=== PATIENT | male | born 1965 | race Caucasian/White ===

== ENCOUNTER 2020-02-18 13:53 | Emergency (ER) | payer OTHER ==
[~2020-02-18] VITALS: Ht 170.2 cm; Wt 93.0 kg
--- OUTSIDE RECORDS SUMMARY | ~2020-02-18 | XMS | Clinical Summary ---
Demographics + + + | Address | [address] | | | [place] [address] | + + + | Home Phone | | + + + | Preferred Language | Unknown | + + + | Marital Status | Single | + + + | Temple Affiliation | NON | + + + | Race | White | + + + | Ethnic Group | Not or | + + + Author + + + | Author | [facility] | + + + | Organization | [facility] | + + + | Address | Unknown | + + + | Phone | Unavailable | + + + Support + + +---------+ + | Name | Relationship | Address | Phone | + + +---------+ + | Emma | ECON | GERARDOK ADD | | | | | Unknown | | + + +---------+ + | Amaury Osuna | ECON | UNK ADD | | | | | Unknown | | + + +---------+ + | Mala | ECON | UNFaheem ADD | | | | | Unknown | | + + +---------+ + Care Team Providers + +------+ + | Care Backend Python Developer Name | Role | Phone | + +------+ + | No Pcp Per Patient | PCP | Unavailable | + +------+ + Source Comments DEREK is fully live on both [facility] and [facility] InPatient.[facility] Allergies Not on File Medications No known medications Active Problems Not on file Social History + +-------+ +--------+------+ | Tobacco [...] on file | | + + + + + + + | Job Start Date | Occupation | Industry | + + + + | Not on file | Not on file | Not on file | + + + + + + + + | Travel History | Travel Start | Travel End | + + + + + + | No recent travel history available. | + + Last Filed Vital Signs + + + [...] | | + + + + + Plan of Treatment + + + + + | Health Maintenance | Due Date | Last Done | Comments | + + + + + | Influenza (Flu) | | | | | vaccination (#1) | 9 | | | + + + + + | Pneumococcal | Aged Out | | No longer eligible | | vaccination | | | based on patient's | | | | | age to complete this | | | | | topic | + + + + + Results Not on filefrom Last 3 Months Insurance +-------+--------+ +--------+ + +------+ | Payer | Benefi | Subscriber | Effect | Phone | Address | Type | | | t Plan | ID | john | | | | | | / | | Dates | | | | | | Group | | | | | | +-------+--------+ +--------+ + +------+ | [place] | [place] | xxxxxxxxxxx | Effect | [phone] | [address] | | | | xxxxx | john | 0 | [phone] | | | | | | for | | [place] | | | | | | all | | [phone] | | | | | | dates | | | | +-------+--------+ +--------+ + +------+ + +--------+ +--------+ + + | Guarantor Name | Accoun | Relation to | Date | Phone | Billing Address | | | t Type | Patient | of | | | | | | | | | | + +--------+ +--------+ + + | Rodney Huerta | Person | Self | [birth year] | [address] | | | al/Fam | | 1965 | [phone] | [address] [place], | | | nadir | | | [address] (Home) | [place] [address] | + +--------+ +--------+ + + | Rodney Huerta | Third | Self | [birth year] | | [address] [facility] | | | Republican | | 1965 | [phone] | [address] [place], | | | [place] | | | [address] (Home) | [place] [address] | | | ity | | | | | + +--------+ +--------+ + +"
--- OUTSIDE RECORDS SUMMARY | ~2020-02-18 | XMS | Clinical Summary ---
Demographics + + + | Address | [address] | | | [place] [address] | + + + | Home Phone | | + + + | Preferred Language | Unknown | + + + | Marital Status | Single | + + + | Church Affiliation | NON | + + + [...] Team Providers + +------+ + | Care Media Services Director Name | Role | Phone | + +------+ + | No Pcp Per Patient | PCP | Unavailable | + +------+ + Source Comments [facility]ERE[facility] Allergies Not on File Medications No known [...] | xxxxx | john | 0 | [phone] | | | | | | for | | [place] | | | | | | all | | [phone] | | | | | | dates [...] Person | Self | [birth year] | | [address] | | | al/Fam | | 1965 | [phone] | [address] [place], | | | nad[place] | | | [address] (Home) | [place] [address] | + +--------+ +--------+ + + | Rodney Huerta | Third | Self | [birth year] | | [address] [facility] | | | Libertarian | | 1965 | [phone] | [address] [place], | | | [place] | | | [address] (Home) | [place] [address] | | | ity | | | | | + +--------+ +--------+ + +"
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
--- OUTSIDE RECORDS SUMMARY | ~2020-02-18 | XMS | Encounter Summary ---
Demographics + + + | Address | [address] | | | [place] [address] | + + + | Home Phone [...] Author + + + | Author | [facility] | + + + | Organization | [facility] | + + + | [...] Team Providers + +------+ + | Care Caustic Room Operator Name | Role | Phone | + +------+ + PCP | Unavailable | + +------+ + Encounter Details +--------+ + + + + | Date | Type | Department | Care Team | Description | +--------+ + + + + | 08/06/ | Results | NON-[facility] | Cassia Hernandez, | | | 2008 | Only | Department | [place] [address] | | | | | | [place] | | | | | | [address] | | | | | | [phone] | | | | | | | [...] + + + + + | [facility] | [place] | [place] | | | [facility] | [facility] | [address] | | + + + + + documented in this encounter Visit Diagnoses Not on filedocumented in this encounter"
--- OUTSIDE RECORDS SUMMARY | ~2020-02-18 | XMS | Encounter Summary ---
Demographics + + + | Address | [address] | | | [place] [address] | + + + | Home Phone | | + + + | Preferred Language | Unknown | + + + | Marital Status | Single | + + + | Gnosticism Affiliation | NON | + + + | Race | White | + + + | Ethnic Group | Not or | + + + Author + + + | Author | [facility] | + + + | Organization | [facility] | + + + | [...] Team Providers + +------+ + | Care Diesel Pile Hammer Operator Name | Role | Phone | + +------+ + PCP | Unavailable | + +------+ + Encounter Details +--------+ + + + + | Date | Type | Department | Care Team | Description | +--------+ + + + + | 08/06/ | Results | NON[facility] | Cassia Hernandez, | | | 2008 | Only | Department | [place] [address] | | | | | | [place] | | | | | | [address] | | | | | | [phone] | | | | | | | [...] + + + + | [facility] | [place] | [place] | | | [facility] | [facility] | [address] | | + + + + + documented in this encounter Visit Diagnoses Not on filedocumented in this encounter"
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
[2020-02-18] MEDS ORDERED: HYDROXYZINE HCL25 MG PO (14:05)
[2020-02-18] MEDS ORDERED: VISTARIL25 MG PO (14:20)
== END 2020-02-18 14:34 | disposition home or self-care (01) ==
LOC: ED 13:53
DX: T78.3XXA Angioneurotic edema, initial encounter (principal); F17.200 Nicotine dependence, unspecified, uncomplicated; Z88.2 Allergy status to sulfonamides; Z88.8 Allergy status to other drugs, medicaments and biological substances; Z79.899 Other long term (current) drug therapy
CPT/HCPCS: 99283; Q0177

== ENCOUNTER 2020-05-23 16:57 | Emergency (ER) | payer OTHER ==
[~2020-05-23] VITALS: Ht 170.2 cm; Wt 90.7 kg
[~2020-05-23 16:57] MED LIST: HYDROXYZINE HCL25 MG PO; VISTARIL25 MG PO
[2020-05-23] MEDS ORDERED: CLEOCIN HCL300 MG PO (18:31)
== END 2020-05-23 18:43 | disposition home or self-care (01) ==
LOC: ED 16:57
DX: L03.114 Cellulitis of left upper limb (principal); F17.200 Nicotine dependence, unspecified, uncomplicated; Z88.2 Allergy status to sulfonamides; Z88.8 Allergy status to other drugs, medicaments and biological substances; Z79.899 Other long term (current) drug therapy
CPT/HCPCS: 99283

== ENCOUNTER 2020-06-22 20:18 | Emergency (ER) | payer OTHER ==
[~2020-06-22] VITALS: Ht 170.2 cm; Wt 90.7 kg
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
--- OUTSIDE RECORDS SUMMARY | ~2020-06-22 | XMS | Encounter Summary ---
Demographics + + + | Address | [address] | | | [place] [address] | + + + | Home Phone | | + + + | Preferred Language | Unknown | + + + | Marital Status | Single | + + + | Taoist Affiliation | NON | + + + | Race | White | + + + | Ethnic Group | Not or | + + + Author + + + | Author | [facility] | + + + | Organization | [facility] | + + + | Address | Unknown | + + + | Phone | Unavailable | + + + Support + + +---------+ + | Name | Relationship | Address | Phone | + + +---------+ + | Emma | KELLE | [address] [address] | | | | | Unknown | | + + +---------+ + | Amaury Osuna | ECON | UNK ADD | | | | | Unknown | | + + +---------+ + | Mala | ECON | UNFaheem ADD | | | | | Unknown | | + + +---------+ + Care Team Providers + +------+ + | Care Credit Portfolio Manager Name | Role | Phone | + +------+ + PCP | Unavailable | + +------+ + Encounter Details +--------+ + + + + | Date | Type | Department | Care Team | Description | +--------+ + + + + | 08/06/ | Results | NON[facility] | Cassia Hernandez, | | | 2008 | Only | Department | [place] [address] | | | | | | [place] | | | | | | [address] | | | | | | [phone] | | | | | | | | +--------+ + + + [...] + + documented as of this encounter Plan of Treatment Not on filedocumented as of this encounter Procedures + +--------+ + + + | Procedure Name | Priori | Date/Time | Associated Diagnosis | Comments | | | ty | | | | + +--------+ + + + | ELLEN VALIENTE ONLY | Routin | 08/06/2009 | | Results for this | | | e | 9:05 AM | | procedure are in the | | | | PST | | results section. | + +--------+ + + + documented in this encounter Results ELLEN VALIENTE ONLY (08/06/2009 9:05 AM PST) + + + + + + | Component | Value | Ref Range | Performed | Pathologist | | | | | At | Signature | + + + + + + | COLOR(UR) | YELLOW | YELLOW | [facility] | | | | | | A MEDICAL | | | | | | CENTER | | + + + + + + | APPEARANCE | CLEAR | CLEAR | [facility] | | | | | | A MEDICAL | | | | | | CENTER | | + + + + + + | SPECIFIC | 1.010 | 1.005 - 1.030 | [facility] | | | GRAVITY | | | A MEDICAL | | | | | | CENTER | | + + + + + + | PH(UR) | 6.0 | 5.0 - 8.0 | [facility] | | | | | | A MEDICAL | | | | | | CENTER | | + + + + + + | PROTEIN, UA | NEG | NEGATIVE | [facility] | | | | | | A MEDICAL | | | | | | CENTER | | + + + + + + | GLUCOSE, UA | NEG | N | [facility] | | | | | | A MEDICAL | | | | | | CENTER | | + + + + + + | KETONES, UA | NEG | NEGATIVE | [facility] | | | | | | A MEDICAL | | | | | | CENTER | | + + + + + + | BILIRUBIN | NEG | NEGATIVE | [facility] | | | | | | A MEDICAL | | | | | | CENTER | | + + + + + + | BLOOD | NEG | NEGATIVE | [facility] | | | | | | A MEDICAL | | | | | | CENTER | | + + + + + + | NITRITES | NEG | NEGATIVE | [facility] | | | | | | A MEDICAL | | | | | | CENTER | | + + + + + + | LEUKOCYTE | NEG | NEGATIVE | [facility] | | | ESTERASE | | | A MEDICAL | | | | | | CENTER | | + + + + + + | UROBILINOGE | NORMAL | NORMAL FIDENCIO | [facility] | | | N | | | A MEDICAL | | | | | | CENTER | | + + + + + + | SOURCE | CLEAN CATCH | | [facility] | | | | [...] + + + + + | [facility] | | | | | LABORATORY | | | | + + + + + | [facility] | And | [place] | | | [facility] | [place] | [address] | | + + + + + documented in this encounter Visit Diagnoses Not on filedocumented in this encounter"
--- OUTSIDE RECORDS SUMMARY | ~2020-06-22 | XMS | Clinical Summary ---
Demographics + + + | Address | [address] | | | [place] [address] | + + + | Home Phone | | + + + | Preferred Language | Unknown | + + + | Marital Status | Single | + + + | Druze Affiliation | NON | + + + [...] Team Providers + +------+ + | Care Billing Department Supervisor Name | Role | Phone | + +------+ + | No Pcp Per Patient | PCP | Unavailable | + +------+ + Source Comments DEREK is fully live on both [facility] and [facility] Allergies Not on File Medications [...] on file | | + + + Last Filed Vital Signs + [...] + + Plan of Treatment + + +-------+ + | Health Maintenance | Due Date | Last | Comments | | | | Done | | + + +-------+ + | Influenza (Flu) | | | | | vaccination (#1) | 0 | | | + + +-------+ + | Pneumococcal | Aged Out | | No longer eligible based on patient's age | | vaccination | | | to complete this topic | + + +-------+ + Results Not on filefrom Last 3 [...] Box | Auto | | | | [phone] | john | 0 | [id number] | | | | | | for | | [place] | | | | | | all | | [phone] | | | | | | dates [...] Person | Self | [birth year] | [address] | | | al/Fam | | 1965 | [phone] | #[place], | | | nad[place] | | | [address] (Home) | [place] [address] | + +--------+ +--------+ + + | Rodney Huerta | Third | Self | [birth year] | | [address] [facility] | | | [employer] | | 1965 | [phone] | #[place], | | | [place] | | | [address] (Home) | [place] [address] | | | ity | | | | | + +--------+ +--------+ + +"
[~2020-06-22 20:18] MED LIST changes: +CLEOCIN HCL300 MG PO
--- OUTSIDE RECORDS SUMMARY | 2020-06-22 20:20 | XMS ---
PreManage Notification: ZAINAB BARRON [employer] Rigger Events No recent Security Events currently on file CRITERIA MET - [facility] - 2 Visits in 30 Days CARE PROVIDERS YU ORDONEZ Spreader Box Operator/Emergency Service Worker [facility] PHONE: [phone] REENA [facility]: Federally Qualified 07/09/2019-Current CONCERN - [facility] ([facility]) PHONE: [phone] CLAYTON PARIS Spreader Box Operator/Emergency Service Worker [facility] PHONE: [phone] PRISCILLA COWART Current PHONE: Unknown YU BARRETT Spreader Box Operator/Emergency Service Worker [facility] TEAM PHONE: Unknown [facility] has no Care Guidelines for this patient. Ana VISIT COUNT (12 MO.) 2 Rikki Pavon TOTAL 5 NOTE: Visits indicate total known visits. ED/UCC VISIT TRACKING (12 MO.) 06/22/2020 20:19 [place] TYPE: Emergency COMPLAINT: - SKIN PROBLEM 05/23/2020 16:58 [place]IZA [place] TYPE: Emergency COMPLAINT: - SKIN PROBLEM DIAGNOSES: - Nicotine dependence, unspecified, uncomplicated - Other halfway (current) drug therapy - Allergy status to other drugs, medicaments and biological sub - Allergy status to sulfonamides status - Cellulitis of left upper limb 02/18/2020 13:54 MARIZA [place] TYPE: Emergency COMPLAINT: - FACIAL SWELLING/ NON INJURY DIAGNOSES: - Localized swelling, mass and lump, head - Allergy status to sulfonamides status - Allergy status to other drugs, medicaments and biological sub - Angioneurotic edema, initial encounter - Nicotine dependence, unspecified, uncomplicated - Other halfway (current) drug therapy 08/20/2019 00:09 [place] TYPE: Emergency DIAGNOSES: - follow up visit - Encounter for other specified aftercare 08/17/2019 18:23 R[place]ki [place] TYPE: Emergency DIAGNOSES: - Cutaneous abscess, unspecified - ABSCESS INPATIENT VISIT TRACKING (12 MO.) No inpatient visits to display in this time frame [email or web address]
[2020-06-22] MEDS ORDERED: CLINDAMYCIN HC300 MG PO (20:37)
== END 2020-06-22 20:51 | disposition home or self-care (01) ==
LOC: ED 20:18
DX: L03.317 Cellulitis of buttock (principal); L02.31 Cutaneous abscess of buttock; F11.10 Opioid abuse, uncomplicated; F17.200 Nicotine dependence, unspecified, uncomplicated; Z88.8 Allergy status to other drugs, medicaments and biological substances; Z88.2 Allergy status to sulfonamides
CPT/HCPCS: 99283

== ENCOUNTER 2020-08-01 19:36 | Emergency (ER) | payer OTHER ==
[~2020-08-01] VITALS: Ht 170.2 cm; Wt 90.7 kg
[~2020-08-01 19:36] MED LIST changes: +CLINDAMYCIN HC300 MG PO
[2020-08-01] MEDS ORDERED: HYDROXYZINE HCL50 MG PO (19:56)
[2020-08-01] MEDS ORDERED: CLINDAMYCIN HC300 MG PO (21:01)
== END 2020-08-01 21:14 | disposition home or self-care (01) ==
LOC: ED 19:36
DX: L03.114 Cellulitis of left upper limb (principal); F11.10 Opioid abuse, uncomplicated; F17.200 Nicotine dependence, unspecified, uncomplicated; Z88.8 Allergy status to other drugs, medicaments and biological substances; Z88.2 Allergy status to sulfonamides; Z79.899 Other long term (current) drug therapy
CPT/HCPCS: 99283

== ENCOUNTER 2022-02-25 15:38 | Emergency (ER) | payer OTHER ==
[~2022-02-25] VITALS: Ht 170.2 cm; Wt 88.0 kg
[~2022-02-25 15:38] MED LIST changes: +HYDROXYZINE HCL50 MG PO
--- OUTSIDE RECORDS SUMMARY | 2022-02-25 15:42 | XMS ---
PreManage Notification: ZAINAB BARRON Security Supervisor Building Maintenance Events No recent Security Events currently on file CRITERIA MET - NICOL CARE PROVIDERS YU ORDONEZ Dairy Management Specialist/Tappet Adjuster [facility] PHONE: [phone] REENA [facility]/Center: Federally Qualified 07/09/2019-Current CONCERN - [facility] ([facility]) PHONE: [phone] CLAYTON CARLTON Dairy Management Specialist/Tappet Adjuster [facility] PHONE: [phone] LINDA SANCHEZ 06/23/2020-Current PHONE: [phone] BEULAH CARD [facility] Current PHONE: [phone] PRISCILLA COWART Current PHONE: Unknown YU BARRETT Dairy Management Specialist/Tappet Adjuster Current [facility] CARE TEAM PHONE: Unknown [facility] has no Care Guidelines for this patient. Care History Medical/Surgical 06/25/2020 [facility] - PATIENT HAS A FOLLOW UP APT WITH LINDA KUHN ON 06/30/2020 [place] VISIT COUNT (12 MO.) 1 MARIZA [place] TOTAL 1 NOTE: Visits indicate total known visits. ED/UCC VISIT TRACKING (12 MO.) 02/25/2022 15:40 [facility]A [place] TYPE: Emergency COMPLAINT: - FOREIGN OBJECT IN RT EYE INPATIENT VISIT TRACKING (12 MO.) No inpatient visits to display in this time frame [email or web address]
[2022-02-25] MEDS ORDERED: VITAMIN D31250 MC1 PO (16:13)
[2022-02-25] MEDS ORDERED: BUPRENORPHINE HC8 MG SL (16:13)
== END 2022-02-25 17:12 | disposition home or self-care (01) ==
LOC: ED 15:38
DX: T15.01XA Foreign body in cornea, right eye, initial encounter (principal); W22.8XXA Striking against or struck by other objects, initial encounter; F17.200 Nicotine dependence, unspecified, uncomplicated; Z88.2 Allergy status to sulfonamides; Z79.899 Other long term (current) drug therapy
CPT/HCPCS: 65222; 99283-25

== ENCOUNTER 2022-10-07 10:19 | Emergency (ER) | payer OTHER ==
[~2022-10-07] VITALS: Ht 170.2 cm; Wt 81.2 kg
[~2022-10-07 10:19] MED LIST changes: +BUPRENORPHINE HC8 MG SL; +VITAMIN D31250 MC1 PO
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
[2022-10-07] MEDS ORDERED: CLINDAMYCIN HC300 MG PO (10:52)
== END 2022-10-07 11:16 | disposition home or self-care (01) ==
LOC: ED 10:19
DX: L03.114 Cellulitis of left upper limb (principal); F17.200 Nicotine dependence, unspecified, uncomplicated; Z88.2 Allergy status to sulfonamides; Z88.8 Allergy status to other drugs, medicaments and biological substances; Z79.899 Other long term (current) drug therapy
CPT/HCPCS: 29125; 99283-25

== ENCOUNTER 2024-10-21 02:00 | Emergency (ER) | payer OTHER ==
[~2024-10-21] VITALS: Ht 170.2 cm; Wt 104.8 kg
[2024-10-21] MEDS ORDERED: LACTATED RINGER'S 1,000 ML IV ONE (02:30)
[2024-10-21] MEDS ORDERED: DEXAMETHASONE SOD PHOS 10 MG/ML VIAL IV ONE (02:45)
[2024-10-21] MEDS ORDERED: DEXAMETHASONE SOD PHOS 10 MG/ML VIAL IM ONE (03:30)
[2024-10-21] MEDS ORDERED: FAMOTIDINE 20 MG TAB PO ONE (04:30)
[2024-10-21] MEDS ORDERED: diphenhydrAMINE HCL 50 MG CAP PO ONE (04:30)
[2024-10-21] MEDS ORDERED: LIDOCAINE & ANTACID 35 ML BTL PO ONE ×2 (04:45→06:00)
[2024-10-21 05:15] LABS: BASOPHILS 0.6 % (0-2); EOSINOPHILS 2.1 % (0-6); HEMATOCRIT 35.6 % (35.0-50.0); HEMOGLOBIN 12.1 g/dL (12.0-18.0); LYMPHOCYTES 20.2 % (24-44); MCH 28.9 (27-36); MCHC 34.1 g/dl (30-36); MCV 84.8 fl (81-99); MONOCYTES 11.9 % (0-12); NEUTROPHILS 65.2 % (39-80); PLATELET COUNT 203 K/uL (140-440); RBC 4.19 M/ul (4.3-5.7); RDW 14.8 (10.5-15.0)
[2024-10-21] MEDS ORDERED: MENTHOL/CETYLPYRD CL 1 LOZ LOZENGE PO ONE (05:15)
[2024-10-21 05:41] LABS: ALBUMIN 3.5 g/dL (3.4-5.0); ALBUMIN/GLOBULIN RATIO 0.81 (1.1-2.4); ALCOHOL, MEDICAL <3 ng/dL (<3); ALKALINE PHOSPHATASE 93 U/L (46-116); ALT (SGPT) 31 U/L (14-59); ANION GAP 11.9 (7-21); AST (SGOT) 16 U/L (15-37); BILIRUBIN, TOTAL 0.3 ng/dL (0.2-1.0); CALCIUM 9.2 mg/dL (8.5-10.1); CARBON DIOXIDE 31 mmol/L (21-32); CHLORIDE 101 mmol/L (98-107); CREATININE, SERUM 1.18 mg/dL (0.70-1.30); GLOMERULAR FILTRATION RATE,EST 71 mL/min (>60); POTASSIUM 3.9 mmol/L (3.5-5.1); PROTEIN, TOTAL 7.8 g/dL (6.4-8.2); UREA NITROGEN 19 mg/dL (7-18)
[2024-10-21] MEDS ORDERED: PREDNISONE20 MG PO (05:59)
[2024-10-21 06:10] VITALS: BP 147/92
--- NOTE | 2024-10-23 21:13 | EKG ---
[facility] [address] [facility] [place], [place] [address] Signed Normal sinus rhythm Normal ECG No previous ECGs available Confirmed by Driss Martins DO ([id number]) on 10/23/2024 9:13:12 PM Electronically Signed By: DRISS MARTINS DO 10/23/242112 PATIENT NAME: ZAINAB BARRON Electrocardiogram DATE OF : 65 PHYSICIAN: DRISS MARTINS DO REPORT #: [id number] REPORT IS CONFIDENTIAL AND NOT TO BE RELEASED WITHOUT AUTHORIZATION
== END 2024-10-21 06:12 | disposition home or self-care (01) ==
LOC: ED 02:00
PROVIDERS: Internal Medicine
DX: J02.8 Acute pharyngitis due to other specified organisms (principal); F17.200 Nicotine dependence, unspecified, uncomplicated; Z88.2 Allergy status to sulfonamides; Z88.6 Allergy status to analgesic agent; Z79.899 Other long term (current) drug therapy
CPT/HCPCS: 36415; 71045; 80053; 80307; 83880; 85025; 87651; 93005; 93010; 96372; 99284-25; G0480; J1100; Q0163